=== PATIENT | male | born 1955 | race African-American/Black ===

== ENCOUNTER 2017-04-28 05:46 | Emergency (ER) | payer OTHER ==
[2017-04-28 06:22] LABS: ADD MAN DIFF? NO
[2017-04-28] MEDS ORDERED: ONDANSETRON PF 4 MG/2 ML VIAL. (06:22)
[2017-04-28] MEDS ORDERED: FAMOTIDINE 20 MG/2 ML VIAL (06:22)
[2017-04-28] MEDS ORDERED: fentaNYL PF VIAL 100 MCG/2 ML VIAL (06:22)
[2017-04-28] MEDS: FAMOTIDINE 20 MG/2 ML VIAL IVP (06:30)
[2017-04-28] MEDS: fentaNYL PF VIAL 100 MCG/2 ML VIAL IV ×2 (06:30→07:16)
[2017-04-28] MEDS: ONDANSETRON PF 4 MG/2 ML VIAL. IV (06:31)
[2017-04-28] MEDS: IV NORMAL SALINE 1000ML BAG 1,000 ML IV (06:31)
[2017-04-28 06:48] LABS: ANION GAP 12 (6-14); BASO % 0 % (0-3); BLOOD UREA NITROGEN 16 mg/dL (8-26); BUN/CREATININE RATIO 13 (6-20); CALCIUM 8.8 mg/dL (8.5-10.1); CARBON DIOXIDE 25 mmol/L (21-32); CHLORIDE 104 mmol/L (98-107); CREATININE 1.2 mg/dL (0.7-1.3); EOS % 0 % (0-3); GFR 74.5; GLUCOSE 183 mg/dL (70-99); HEMATOCRIT 46.8 % (39.0-53.0); HEMOGLOBIN 15.4 g/dL (13.0-17.5); LYMPH # 1.1 x10^3/uL (1.0-4.8); LYMPH % 9 % (24-48); MEAN CORPUSCULAR HEMOGLOBIN 29 pg (25-35); MEAN CORPUSCULAR HGB CONC 33 g/dL (31-37); MEAN CORPUSCULAR VOLUME 87 fL (79-100); MONO # 0.5 x10^3/uL (0.0-1.1); MONO % 4 % (0-9); NEUT # 10.8 x10^3uL (1.8-7.7); NEUT % 87 % (31-73); PLATELET COUNT 225 x10^3/uL (140-400); POTASSIUM 3.4 mmol/L (3.5-5.1); RED BLOOD COUNT 5.38 x10^6/uL (4.30-5.70); RED CELL DISTRIBUTION WIDTH 14.9 % (11.5-14.5); SODIUM 141 mmol/L (136-145); WHITE BLOOD COUNT 12.5 x10^3/uL (4.0-11.0)
[2017-04-28 06:54] LABS: ALBUMIN 3.7 g/dL (3.4-5.0); ALBUMIN/GLOBULIN RATIO 0.9 (1.0-1.7); ALK PHOS 97 U/L (46-116); ALT (SGPT) 24 U/L (16-63); AST (SGOT) 20 U/L (15-37); LIPASE 121 U/L (73-393); TOTAL BILIRUBIN 0.4 mg/dL (0.2-1.0); TOTAL PROTEIN 7.7 g/dL (6.4-8.2)
[2017-04-28] MEDS: IOHEXOL 300 MG/ML 100ML VIAL. IV (06:58)
[2017-04-28] MEDS ORDERED: CONTRAST GIVEN MC (07:00)
[2017-04-28 07:20] LABS: BILIRUBIN,URINE NEGATIVE (NEG); CLARITY,URINE CLOUDY; COLOR,URINE YELLOW; GLUCOSE,URINE 100 mg/dL (NEG); NITRITE,URINE NEGATIVE (NEG); PH,URINE 7.5; PROTEIN,URINE 30 mg/dL (NEG-TRACE); UROBILINOGEN,URINE 0.2 mg/dL (0.2 mg/dL)
[2017-04-28 07:31] LABS: BACTERIA,URINE 0 /HPF (0-FEW); SQUAMOUS EPITHELIAL CELL,UR OCC /LPF; WBC,URINE 0 /HPF (0-4)
[2017-04-28] MEDS: HYDROcodone/APAP 7.5/325MG 1 TAB TABLET PO (08:41)
== END 2017-04-28 08:48 | disposition home or self-care (01) ==
LOC: ER 05:46
DX: K43.7 Other and unspecified ventral hernia with gangrene (principal); K57.30 Diverticulosis of large intestine without perforation or abscess without bleeding; K80.20 Calculus of gallbladder without cholecystitis without obstruction; N28.1 Cyst of kidney, acquired; E78.00 Pure hypercholesterolemia, unspecified; I10 Essential (primary) hypertension
CPT/HCPCS: 36415; 74177; 80053; 81001; 83690; 85025; 96374; 96375; 99285-25; J2405; J3010; J7030; Q9967; S0028

== ENCOUNTER 2017-08-03 12:13 | Emergency (ER) | payer OTHER ==
[2017-08-03] MEDS ORDERED: 0.9 % SODIUM CHLORIDE 10 ML DISP.SYRIN. IV (12:45)
[2017-08-03 12:56] LABS: BASO % 0 % (0-3); EOS % 0 % (0-3); HEMOGLOBIN 15.1 g/dL (13.0-17.5); LYMPH # 0.9 x10^3/uL (1.0-4.8); LYMPH % 9 % (24-48); MEAN CORPUSCULAR HEMOGLOBIN 29 pg (25-35); MEAN CORPUSCULAR HGB CONC 33 g/dL (31-37); MEAN CORPUSCULAR VOLUME 86 fL (79-100); MONO # 0.2 x10^3/uL (0.0-1.1); MONO % 2 % (0-9); NEUT % 88 % (31-73); PLATELET COUNT 246 x10^3/uL (140-400); RED BLOOD COUNT 5.25 x10^6/uL (4.30-5.70); RED CELL DISTRIBUTION WIDTH 14.7 % (11.5-14.5); WHITE BLOOD COUNT 10.2 x10^3/uL (4.0-11.0)
[2017-08-03] MEDS: IV NORMAL SALINE 1000ML BAG 1,000 ML IV (12:58)
[2017-08-03] MEDS: MORPHINE SULFATE 4 MG/ML DISP.SYRIN. IV/SQ ×2 (12:59→14:07)
[2017-08-03 13:00] LABS: ADD MAN DIFF? YES
[2017-08-03] MEDS: ASPIRIN CHEWABLE 81 MG TABLET. PO (13:00)
[2017-08-03 13:02] LABS: BILIRUBIN,URINE NEGATIVE (NEG); CLARITY,URINE CLEAR; COLOR,URINE YELLOW; GLUCOSE,URINE NEGATIVE (NEG); NITRITE,URINE NEGATIVE (NEG); PROTEIN,URINE NEGATIVE (NEG-TRACE); UROBILINOGEN,URINE 0.2 mg/dL (0.2 mg/dL)
[2017-08-03 13:08] LABS: ANION GAP 9 (6-14); BLOOD UREA NITROGEN 12 mg/dL (8-26); CALCIUM 9.4 mg/dL (8.5-10.1); CARBON DIOXIDE 27 mmol/L (21-32); CHLORIDE 104 mmol/L (98-107); CREATININE 1.2 mg/dL (0.7-1.3); GFR 74.5; GLUCOSE 139 mg/dL (70-99); POTASSIUM 3.5 mmol/L (3.5-5.1); SODIUM 140 mmol/L (136-145)
[2017-08-03 13:14] LABS: ALBUMIN 3.8 g/dL (3.4-5.0); ALK PHOS 122 U/L (46-116); ALT (SGPT) 28 U/L (16-63); AST (SGOT) 21 U/L (15-37); DIRECT BILIRUBIN 0.1 mg/dL (0.0-0.2); LIPASE 106 U/L (73-393); MAGNESIUM 2.2 mg/dL (1.8-2.4); TOTAL BILIRUBIN 0.5 mg/dL (0.2-1.0); TOTAL PROTEIN 8.1 g/dL (6.4-8.2)
[2017-08-03] MEDS ORDERED: CONTRAST GIVEN MC (13:15)
[2017-08-03 13:16] LABS: TROPONINI < 0.017 ng/mL (0.000-0.055)
[2017-08-03 13:21] LABS: THYROID STIM HORMONE (TSH) 0.303 uIU/mL (0.358-3.74)
[2017-08-03 13:24] LABS: % BANDS 1 % (0-9); % LYMPHS 8 % (24-48); % SEGS 91 % (35-66); PLT ESTIMATE ADEQUATE (ADEQUATE)
[2017-08-03 13:25] LABS: NT-PRO BNP 134 pg/mL (0-124)
[2017-08-03 13:25] LABS: ANISOCYTOSIS PRESENT; CKMB INDEX 0.8 % (0-4); CKMB MASS 1.5 ng/mL (0.0-3.6); CREATINE KINASE 183 U/L (39-308)
[2017-08-03] MEDS: IOHEXOL 300 MG/ML 100ML VIAL. IV (13:25)
[2017-08-03 13:26] LABS: WBC,URINE 0 /HPF (0-4)
[2017-08-03 13:27] LABS: BACTERIA,URINE 0 /HPF (0-FEW)
[2017-08-03] MEDS ORDERED: MORPHINE SULFATE 4 MG/ML DISP.SYRIN. IV (14:30)
== END 2017-08-03 15:05 | disposition home or self-care (01) ==
LOC: ER 12:13
DX: K43.9 Ventral hernia without obstruction or gangrene (principal); R07.89 Other chest pain; E78.00 Pure hypercholesterolemia, unspecified; I10 Essential (primary) hypertension; F17.210 Nicotine dependence, cigarettes, uncomplicated; E78.5 Hyperlipidemia, unspecified; E66.9 Obesity, unspecified; Z68.33 Body mass index [BMI] 33.0-33.9, adult
CPT/HCPCS: 36415; 71045; 74177; 80048; 80076; 81001; 82553; 83690; 83735; 83880; 84443; 84484; 85007; 85025; 93005; 96361; 96374; 96375; 96376; 99285-25; J2060; J2270; J7030; Q9967

== ENCOUNTER → 2017-10-09 | Outpatient (CLI) | payer OTHER | END | disposition home or self-care (01) | LOC: RAD 15:25 | DX: R91.8 Other nonspecific abnormal finding of lung field (principal) | CPT/HCPCS: 71046 ==

== ENCOUNTER → 2017-10-13 | Outpatient (CLI) | payer OTHER | END | disposition home or self-care (01) | LOC: US 10:46 | DX: N28.1 Cyst of kidney, acquired (principal); R16.0 Hepatomegaly, not elsewhere classified | CPT/HCPCS: 76700 ==